=== PATIENT | male | born 1955 | race Caucasian/White ===

== ENCOUNTER → 2024-01-20 06:34 | Day surgery (SDC) | payer MEDICARE, OTHER, SELFPAY | LOC: GI 06:34 | PROVIDERS: ATTENDING PHYSICIAN Internal Medicine Gastroenterology | DX: Z12.11 Encounter for screening for malignant neoplasm of colon (principal); K64.8 Other hemorrhoids; K62.1 Rectal polyp; K63.5 Polyp of colon | CPT/HCPCS: 45380; 88305 ==

== ENCOUNTER 2025-01-03 04:43 | Emergency (ER) | payer MEDICARE, OTHER, SELFPAY ==
[2025-01-03 04:45] VITALS: BP 115/66
[2025-01-03 05:13] LABS: % Basophils 0.2 % (0-2); % Eosinophils 0.8 % (0-6); % Immature Granulocytes 0.5 % (0-0.5); % Lymphocytes 17.5 % (20.5-51.1); % Monocytes 8.8 % (1.7-9.3); % Neutrophils 72.2 % (42.2-75.2); Absolute Eosinophils 0.1 10^3/uL (0-0.7); Absolute Lymphocytes 1.5 10^3/uL (1.2-3.4); Absolute Monocytes 0.8 10^3/uL (0.1-0.6); Absolute Neutrophils 6.3 10^3/uL (1.4-6.5); Hematocrit 32.5 % (39.0-52.0); Mean Corp Hgb Conc. 33.8 g/dL (33.0-37.0); Mean Corpuscular Hgb 30.3 pg (27.0-31.0); Mean Corpuscular Volume 89.5 fL (80.0-94.0); Mean Platelet Volume 11.1 fL (7.4-10.4); Nucleated Red Blood Cells % 0 % (-); Platelet Count 150 10^3/uL (130-400); Red Blood Cell Count 3.63 10^6/uL (4.70-6.10); Red Cell Dist. Width 12.7 % (11.5-14.5); White Blood Cell Count 8.7 10^3/uL (4.8-10.8)
[2025-01-03 05:16] LABS: Lactic Acid 0.7 mmol/L (0.7-2.0)
[2025-01-03 05:31] LABS: ALT (SGPT) 50 U/L (0-50); AST (SGOT) 39 U/L (17-59); Albumin 3.8 g/dl (3.5-5.0); Alkaline Phosphatase 80 U/L (38-126); Blood Urea Nitrogen 17 mg/dl (9-20); Calcium 8.8 mg/dl (8.4-10.2); Carbon Dioxide 27 mmol/L (22-30); Chloride 106 mmol/L (98-107); Glucose 127 mg/dl (70-99); Potassium 4.5 mmol/L (3.5-5.1); Sodium 139 mmol/L (135-145); Total Bilirubin 0.5 mg/dl (0.2-1.3); Total Protein 6.3 g/dl (6.3-8.2); eGFR > 60.00
[2025-01-03 06:07] VITALS: BP 114/74
[2025-01-03 06:10] VITALS: BP 114/74; BMI 23.8
--- NOTE | 2025-01-03 06:38 | ED.GENMED ---
History of Present Illness
<Stefan Kahn PA-C - Last Filed: 01/03/25 07:32>
General
Chief Complaint: Headache
Source: patient
Exam Limitations: none
Time Seen by Provider: 01/03/25 06:20
History of Present Illness
History of Present Illness:
69-year-old male otherwise fairly healthy presents complaining of fatigue, myalgias headache occasional fever sweats chills neck discomfort. He was also recently diagnosed with cellulitis behind the right knee. He was placed on Keflex. He has
been on Keflex 4 times a day for 3 days but symptoms seem to be progressing. He denies any photosensitivity or vomiting. He also notes intermittent right ear discomfort but denies numbness to the face. He is outside frequently. He is concerned
about potential for Lyme. No abdominal pain or vomiting. The rash behind his right knee is still present but has improved slightly
Past History
<Stefan Kahn PA-C - Last Filed: 01/03/25 07:32>
Past History
ED Past Medical History: Hypercholesterolemia and Other (BPH)
ED Past Surgical History: Urological (Prostate Bx 05/14/19)
Social History
Tobacco: Non-smoker
Alcohol: None
Drug: None
Personal:
Living: with family
Phy Exam
<Stefan Kahn PA-C - Last Filed: 01/03/25 07:32>
Physical Exam
Physical Exam:
General: Overall well-appearing male no acute respiratory distress
HEENT: Normocephalic atraumatic neck is supple no adenopathy TMs normal
Heart: Regular rate and rhythm
Lungs: Clear no wheeze
Abdomen is soft nontender nondistended
Neurologic exam: Alert and oriented pupils equal round reactive to light noted photosensitivity. No meningeal signs or nuchal rigidity
Skin: Erythematous macular circular rash in the popliteal area of the right knee. No significant induration or fluctuance
Vascular: 2+ DP pulse bilateral feet
Sepsis
<Stefan Kahn PA-C - Last Filed: 01/03/25 07:32>
Sepsis Screening
Sepsis Assessment: Sepsis Ruled Out
Sepsis Screen
Sepsis Screen: Sepsis Ruled Out
Date: 01/03/25
Time: 07:32
Course
<Stefan Kahn PA-C - Last Filed: 01/03/25 07:32>
Orders/Labs/Results
Orders:
Orders
01/03/25 04:57
Complete Blood Count/With Diff Urgent
Comprehensive Metabolic Panel Urgent
Lactate Level [Lactic Acid] Urgent
Lyme Progressive Urgent
Comment: ADD ON
01/03/25 06:38
Add On- LAB Urgent
Tests Added?: lyme progressive
Acetaminophen [Tylenol] 650 mg PO NOW STA
Abnormal Lab Results
01/03/25
04:57
RBC 3.63 L 10^6/uL
(4.70-6.10)
Hgb 11.0 L g/dL
(13.0-18.0)
Hct 32.5 L %
(39.0-52.0)
MPV 11.1 H fL
(7.4-10.4)
Absolute Monos (auto) 0.8 H 10^3/uL
(0.1-0.6)
Lymphocytes % 17.5 L %
(20.5-51.1)
Glucose 127 H mg/dl
(70-99)
01/03/25 04:57
01/03/25 04:57
Vital Signs
Initial and Last Documented VS:
Initial Vital Signs
Temp Pulse Resp BP Pulse Ox
99.1 F 75 20 115/66 98
01/03/25 04:45 01/03/25 04:45 01/03/25 04:45 01/03/25 04:45 01/03/25 04:45
Last Documented Vital Signs
Temp Pulse Resp BP Pulse Ox
99.1 F 69 18 114/74 97
01/03/25 04:45 01/03/25 06:10 01/03/25 06:10 01/03/25 06:10 01/03/25 06:10
Stevelt;Hilton Bliss, DO - Last Filed: 01/03/25 07:03>
Orders/Labs/Results
Orders:
Orders
01/03/25 04:57
Complete Blood Count/With Diff Urgent
Comprehensive Metabolic Panel Urgent
Lactate Level [Lactic Acid] Urgent
Lyme Progressive Urgent
Comment: ADD ON
01/03/25 06:38
Add On- LAB Urgent
Tests Added?: lyme progressive
Acetaminophen [Tylenol] 650 mg PO NOW STA
Abnormal Lab Results
01/03/25
04:57
RBC 3.63 L 10^6/uL
(4.70-6.10)
Hgb 11.0 L g/dL
(13.0-18.0)
Hct 32.5 L %
(39.0-52.0)
MPV 11.1 H fL
(7.4-10.4)
Absolute Monos (auto) 0.8 H 10^3/uL
(0.1-0.6)
Lymphocytes % 17.5 L %
(20.5-51.1)
Glucose 127 H mg/dl
(70-99)
01/03/25 04:57
01/03/25 04:57
Vital Signs
Initial and Last Documented VS:
Initial Vital Signs
Temp Pulse Resp BP Pulse Ox
99.1 F 75 20 115/66 98
01/03/25 04:45 01/03/25 04:45 01/03/25 04:45 01/03/25 04:45 01/03/25 04:45
Last Documented Vital Signs
Temp Pulse Resp BP Pulse Ox
99.1 F 69 18 114/74 97
01/03/25 04:45 01/03/25 06:10 01/03/25 06:10 01/03/25 06:10 01/03/25 06:10
<Stefan Kahn PA-C - Last Filed: 01/03/25 07:32>
MDM/Problems Addressed
Differential Diagnosis Includes:
Symptoms as mentioned above. Differential could include cellulitis versus Lyme. Consider potential for meningitis given neck stiffness fever and headache however exam and blood work reassuring with normal white count lack of meningeal signs. Lyme
test is pending.
<Stefan Kahn PA-C - Last Filed: 01/03/25 07:32>
*Critical Care Note
Total Time (30-74mins, 75-104mins- exclusive of procedures): Not Applicable
<Stefan Kahn PA-C - Last Filed: 01/03/25 07:32>
Update Note
Update Note:
Case discussed emergency room attending saw the patient as well. To our exam the patient is nontoxic. Suspect underlying Lyme. No meningeal signs on exam. Discussed with patient risks and benefits of lumbar puncture however not indicated at this
time. Will switch to doxycycline. Lyme test is pending. Return precautions were given
ED Attending Note
<Stefan Kahn PA-C - Last Filed: 01/03/25 07:32>
-
Portions of this chart may have been created with voice recognition software.� Occasional wrong word or��sound alike� substitutions may have occurred due to the inherent limitations of voice recognition software.
<Hilton Bliss DO - Last Filed: 01/03/25 07:03>
ED Attending Note
Patient seen and examined by attending physician: Yes
I performed the substantive portion of visit, reviewed & personally made and approve the management plan that is documented in note by myself or LINDSEY.: Yes
ED Attending Note:
I agree with Marky's note
Patient presents complaining of headache, neck pain. Patient has been taking Keflex for the past couple days for redness of the right calf thought to be cellulitis. Erythema maybe has improved but there is still significant amount present.
Patient concerned he may be developing meningitis from the skin infection. He denies any nausea, vomiting, focal weakness numbness or tingling
General: Awake, Alert, Oriented X3. No acute distress.
Vitals: unremarkable
Head: Atraumatic
Eyes: Pupils equal, EOMI
Throat: Airway intact, no exudates
Neck: Trachea midline, supple, no meningismus
Lungs: Clear and equal b/l
Heart: Regular rate, no murmurs
Neuro: Cranial nerves intact, muscle strength equal bilaterally, cerebellar exam normal
Skin: Warm, dry, fairly large area of erythema noted posterior calf on the right. There does appear to be some central clearing. The overall size is along the lines of 15 cm x 5 cm
Extremities: pulses equal b/l, no edema
Suspect Lyme. My suspicion for meningitis is extremely low given the patient looks well, has no meningismus. I believe his headache and neck pain is more likely related to Lyme and systemic response to this infection. Will switch to Doxy.
Discharge Plan
Departure
Patient Disposition: Home (Routine Discharge)
Date of Disposition: 01/03/25
Time of Disposition: 07:29
Patient with high blood pressure during this ER visit?: No
Discharge Problem:
Rash
Instructions: Lyme disease
Prescriptions:
New
doxycycline hyclate 100 mg tablet
100 mg PO BID Qty: 28 0RF
No Action
sulfamethoxazole-trimethoprim 1 TABLET tablet
1 tab PO BID Qty: 13 0RF
tamsulosin 0.4 MG capsule
0.4 mg PO DAILY Qty: 14 0RF
Referrals:
UNKNOWN - PT DOES,NOT KNOW [Family Provider]
Activity Restrictions/Additional Instructions:
As discussed, stop Keflex and start doxycycline for possible Lyme disease. A Lyme test is pending. Please return here for worsening symptoms otherwise follow-up with your doctor
Interventions
Interventions:
*Risk Screen - Suicide Last Done: 01/03/25 04:45
*General Assessment Last Done: 01/03/25 04:45
*Neglect/Abuse Screening Last Done: 01/03/25 04:45
*ED COVID-19 Vaccine History Last Done: 01/03/25 04:45
ED- Neurological Assessment Last Done: 01/03/25 06:10
Discharge Date and Time
Print Language: IRISH
[2025-01-03 07:00] VITALS: BP 112/70
[2025-01-03] MEDS: TYLENOL 650 MG PO (07:26)
[2025-01-03 16:08] LABS: Lyme Antibody Screen, EIA Negative (Negative)
== END 2025-01-03 07:45 | disposition home or self-care (01) ==
LOC: EMR 04:43
PROVIDERS: Emergency Medicine; EMERGENCY PHYSICIAN Emergency Medicine
DX: R21 Rash and other nonspecific skin eruption (principal)
CPT/HCPCS: 99283; 80053; 83605; 85025; 86618